=== PATIENT | female | born 1955 | race Caucasian/White ===

== ENCOUNTER 2017-01-22 22:44 | Inpatient (IN) | payer MEDICARE, MEDICAID ==
[~2017-01-22] VITALS: Ht 168 cm; Wt 77.1 kg
[~2017-01-22 22:44] MED LIST: ADVIL200 MG PO; ALBUTEROL0.09 MG/A2 INH; ASPIRIN81 M1 PO; ATARAX,VISTARIL50 MG PO; MEDROL DOSEPAK4 MG PO; MELOXICAM7.5 MG PO; NKHM PO; PRILOSEC40 M1 PO; PRILOSEC40 MG PO; PRINIVIL5 M1 PO; PROAIR HFA8.5 GM IH; SYMBICORT1 AE1 INH; XANAX0.5 MG PO; ZANTAC 150150 MG PO; ZANTAC 7575 MG PO
[2017-01-22 22:50] VITALS: BP 136/90
[2017-01-22 23:07] LABS: BASO % 0.4 % (0.0-1.0); EOS # 0.3 10*3/uL (0.0-0.4); EOS % 3.7 % (1.0-4.0); HEMATOCRIT 47.3 % (37.0-47.0); HEMOGLOBIN 15.7 g/dl (12.0-16.0); LYMPH % 44.7 % (27.0-41.0); MEAN CELL VOLUME 90.3 fl (81.0-99.0); MEAN CORPUSCULAR HGB CONC 33.2 g/dl (33.0-37.0); MEAN PLATELET VOLUME 9.7 fl (9.6-12.3); MONO # 0.7 10*3/uL (0.1-1.0); MONO % 7.8 % (3.0-9.0); NEUT # 3.9 10*3/uL (2.3-7.9); NEUT % 43.1 % (47.0-73.0); PLATELET COUNT AUTOMATED 265 10*3/uL (130-400); RED BLOOD COUNT 5.24 10*6/uL (4.10-5.10); RED CELL DISTRI WIDTH 12.9 % (0-14.5)
[2017-01-22 23:35] LABS: ALBUMIN 3.5 gm/dl (3.1-4.5); ALKALINE PHOSPHATASE 114 U/L (45-117); BUN 18 mg/dl (7-24); CHLORIDE 107 mmol/L (98-107); CREATININE 0.62 mg/dL (0.55-1.02); POTASSIUM 4.1 mmol/L (3.5-5.1); SGOT/AST 17 IU/L (3-35); SGPT/ALT 29 U/L (12-78); SODIUM 140 mmol/L (136-145)
[2017-01-22 23:38] LABS: TROPONIN I < 0.015 ng/ml (<0.045)
[2017-01-23] VITALS: BP 146/71
--- NOTE | 2017-01-23 00:03 | NUR ---
PATIENT SITTING IN BED STATES RIGHT UPPER ARM IS PAINFUL, NO SIGNS OF DISTRESS
[2017-01-23 00:05] VITALS: BP 149/84
[2017-01-23 01:00] VITALS: BP 126/70
--- NOTE | 2017-01-23 01:20 | NUR ---
ATIVAN SUCCESSFUL. PT ASLEEP.
[2017-01-23 04:50] LABS: BASO # 0.1 10*3/uL (0.0-0.1); BASO % 0.6 % (0.0-1.0); EOS # 0.3 10*3/uL (0.0-0.4); EOS % 3.7 % (1.0-4.0); HEMATOCRIT 45.8 % (37.0-47.0); HEMOGLOBIN 15.1 g/dl (12.0-16.0); LYMPH # 3.8 10*3/uL (1.3-4.4); LYMPH % 46.8 % (27.0-41.0); MEAN CELL VOLUME 91.6 fl (81.0-99.0); MEAN CORPUSCULAR HGB 30.2 pg (27.0-31.0); MEAN PLATELET VOLUME 9.7 fl (9.6-12.3); MONO # 0.7 10*3/uL (0.1-1.0); MONO % 8.8 % (3.0-9.0); NEUT # 3.2 10*3/uL (2.3-7.9); NEUT % 39.9 % (47.0-73.0); PLATELET COUNT AUTOMATED 250 10*3/uL (130-400); RED CELL DISTRI WIDTH 12.9 % (0-14.5); WHITE BLOOD COUNT 8.1 10*3/uL (4.8-10.8)
[2017-01-23 05:22] LABS: BUN 15 mg/dl (7-24); CHLORIDE 106 mmol/L (98-107); CHOLESTEROL 197 mg/dL (<200); CREATININE 0.59 mg/dL (0.55-1.02); HDL CHOLESTEROL 56 mg/dl (40-60); LDL CHOLESTEROL 115 mg/dL (9-159); PHOSPHOROUS 3.6 mg/dL (2.5-4.9); POTASSIUM 3.9 mmol/L (3.5-5.1); SODIUM 141 mmol/L (136-145); TRIGLYCERIDES 130 mg/dl (<150); VLDL CHOLESTEROL 26 mg/dL (6-40)
[2017-01-23 06:58] LABS: VITAMIN D, 25-HYDROXY 14.6 ng/mL (30-100)
[2017-01-23 08:00] VITALS: BP 101/72
[2017-01-23 12:00] VITALS: BP 119/71
[2017-01-23] MEDS ORDERED: Vitamin D PO (13:26)
[2017-01-23] MEDS ORDERED: PRINIVIL5 M1 PO (14:38)
--- NOTE | 2017-01-23 14:51 | NUR ---
Discharge instructions reviewed with patient/family. Patient receptive and verbalizes understanding. Follow-up care arranged. Written instructions given to patient/family. Pt discharged at this time in care of friend. CASTRO COBIAN
== END 2017-01-23 14:51 | disposition home or self-care (01) | DRG 313 ==
LOC: ED 22:44 → 5E 23:54 → EDHOLD 23:54 → 5E 01-23 00:01
PROVIDERS: Internal Medicine; Student in an Organized Health Care Education/Training Program; ADMIT Internal Medicine
DX: R07.9 Chest pain, unspecified (principal); D70.9 Neutropenia, unspecified; J44.9 Chronic obstructive pulmonary disease, unspecified; E55.9 Vitamin D deficiency, unspecified; K21.9 Gastro-esophageal reflux disease without esophagitis; F17.210 Nicotine dependence, cigarettes, uncomplicated; I10 Essential (primary) hypertension; Z82.3 Family history of stroke; Z79.82 Long term (current) use of aspirin; Z79.899 Other long term (current) drug therapy; Z71.6 Tobacco abuse counseling; Z82.49 Family history of ischemic heart disease and other diseases of the circulatory system

== ENCOUNTER → 2017-09-09 | Outpatient (CLI) | payer MEDICARE, MEDICAID ==
[~2017-09-09] MED LIST changes: +Vitamin D PO
[2017-09-09 14:34] LABS: BASO # 0.1 10*3/uL (0.0-0.1); BASO % 0.8 % (0.0-1.0); EOS # 0.4 10*3/uL (0.0-0.4); EOS % 3.9 % (1.0-4.0); HEMATOCRIT 48.1 % (37.0-47.0); HEMOGLOBIN 15.7 g/dl (12.0-16.0); LYMPH # 3.6 10*3/uL (1.3-4.4); LYMPH % 39.2 % (27.0-41.0); MEAN CELL VOLUME 91.6 fl (81.0-99.0); MEAN CORPUSCULAR HGB 29.9 pg (27.0-31.0); MEAN CORPUSCULAR HGB CONC 32.6 g/dl (33.0-37.0); MEAN PLATELET VOLUME 9.7 fl (9.6-12.3); MONO # 0.7 10*3/uL (0.1-1.0); MONO % 7.1 % (3.0-9.0); NEUT # 4.5 10*3/uL (2.3-7.9); NEUT % 48.7 % (47.0-73.0); PLATELET COUNT AUTOMATED 279 10*3/uL (130-400); RED BLOOD COUNT 5.25 10*6/uL (4.10-5.10); RED CELL DISTRI WIDTH 12.8 % (0-14.5); WHITE BLOOD COUNT 9.3 10*3/uL (4.8-10.8)
[2017-09-09 15:04] LABS: ALBUMIN 3.8 gm/dl (3.1-4.5); ALKALINE PHOSPHATASE 108 U/L (45-117); BUN 17 mg/dl (7-24); CHLORIDE 106 mmol/L (98-107); CHOLESTEROL 221 mg/dL (<200); CREATININE 0.68 mg/dL (0.55-1.02); HDL CHOLESTEROL 48 mg/dl (40-60); LDL CHOLESTEROL 125 mg/dL (9-159); POTASSIUM 3.9 mmol/L (3.5-5.1); SGOT/AST 13 IU/L (3-35); SGPT/ALT 23 U/L (12-78); SODIUM 140 mmol/L (136-145); TOTAL PROTEIN 7.1 gm/dL (6.4-8.2); TRIGLYCERIDES 242 mg/dl (<150); VLDL CHOLESTEROL 48 mg/dL (6-40)
[2017-09-09 15:11] LABS: THYROID STIM HORMONE (HS) 0.894 uIU/ml (0.358-4.75)
== END | disposition home or self-care (01) ==
LOC: MAMMO 08-25 14:00 → LAB 13:55 → MAMMO 14:20
PROVIDERS: Internal Medicine
DX: Z12.31 Encounter for screening mammogram for malignant neoplasm of breast (principal); I10 Essential (primary) hypertension; E66.3 Overweight

== ENCOUNTER → 2017-12-24 | Outpatient (CLI) | payer MEDICARE, MEDICAID ==
[~2017-12-24] MED LIST changes: +LATANOPROST 0.7.5 ML OP; +LIPITOR10 MG PO; +LOPRESSOR25 MG PO; +PAROXETINE10 MG PO; +TRIAMTERENE-HC1 EACH PO
--- NOTE | ~2017-12-24 | ST ---
[place], [place] EXERCISE STRESS TEST REPORT NAME: RENY GREEN [facility] #: [id number] UNIT #: [id number] ROOM: DOCTOR: JOHNNY VICENTE MD BIRTHDATE: [birth year] DOS: 12/24/2017 LEXISCAN STRESS EKG REPORT REFERRING PHYSICIAN: Dr. Ackerman. INDICATION: Central chest pain. The patient underwent standard protocol Lexiscan stress EKG. Baseline EKG is normal sinus with nonspecific ST-T wave changes. Baseline heart rate is 64 beats per minute with a blood pressure of 110/64. The patient's peak heart rate was 100 with a blood pressure of 100/58. The patient had no chest pain, no arrhythmias, no EKG changes. SUMMARY OF FINDINGS: Unremarkable Lexiscan stress EKG. Please see separate report for perfusion scan results. JOHNNY VICENTE MD CM:STRESS:EXERCISE STRESS TEST REPORT [id number] JOHNNY VICENTE MD
== END | disposition home or self-care (01) ==
LOC: CARD 00:44
DX: R07.9 Chest pain, unspecified (principal); R53.81 Other malaise

== ENCOUNTER 2018-04-28 12:33 | Inpatient (IN) | payer MEDICARE, MEDICAID ==
[~2018-04-28] VITALS: Ht 167.6 cm; Wt 87.3 kg
--- NOTE | ~2018-04-28 | EKG ---
[place], [place] ELECTROCARDIOGRAM REPORT NAME: RENY GREEN UNIT #: [id number] ROOM: 425 DOCTOR: RUTHY DRAFT REPORT BIRTHDATE: [birth year] [facility] Test Date: 2018-04-28 Test Time: 12:59:06 Pat Name: RENY GREEN Department: Room: 425 Gender: F [employer] In[employer]: : 1955 Requested By: RENITA MCDONALD Order Number: [id number] Reading MD: Gonzalez Laboy MD Measurements Intervals Sledge Rate: 62 P: 44 MS: 167 QRS: -29 QRSD: 98 T: 34 QT: 402 QTc: 409 Interpretive Statements Sinus rhythm Borderline left axis deviation Abnormal R-wave progression, late transition Electronically Signed On 04-29-2018 9:49:40 PST by Gonzalez Laboy MD CM:EKGRPT:ELECTROCARDIOGRAM REPORT [id number] RENITA HUNTER DRAFT REPORT RENITA MCDONALD DO
[2018-04-28 12:33] VITALS: BP 131/84
[2018-04-28 13:12] LABS: BASO % 0.4 % (0.0-1.0); EOS # 0.2 10*3/uL (0.0-0.4); EOS % 1.7 % (1.0-4.0); HEMATOCRIT 48.3 % (37.0-47.0); HEMOGLOBIN 15.9 g/dl (12.0-16.0); LYMPH # 3.2 10*3/uL (1.3-4.4); LYMPH % 32.7 % (27.0-41.0); MEAN CELL VOLUME 91.8 fl (81.0-99.0); MEAN CORPUSCULAR HGB 30.2 pg (27.0-31.0); MEAN CORPUSCULAR HGB CONC 32.9 g/dl (33.0-37.0); MEAN PLATELET VOLUME 9.6 fl (9.6-12.3); MONO % 10.6 % (3.0-9.0); NEUT # 5.3 10*3/uL (2.3-7.9); NEUT % 54.1 % (47.0-73.0); PLATELET COUNT AUTOMATED 355 10*3/uL (130-400); RED BLOOD COUNT 5.26 10*6/uL (4.10-5.10); RED CELL DISTRI WIDTH 12.8 % (0-14.5); WHITE BLOOD COUNT 9.8 10*3/uL (4.8-10.8)
[2018-04-28 13:34] LABS: ACT PARTIAL THROMBO TIME 23.8 SECONDS (20.8-31.5)
[2018-04-28 14:30] LABS: BILIRUBIN NEGATIVE (NEGATIVE); BLOOD 1+ (NEGATIVE); CLARITY SL CLOUDY (CLEAR); COLOR YELLOW (YELLOW); GLUCOSE NEGATIVE (NEGATIVE); KETONE NEGATIVE (NEGATIVE); LEUKO ESTERASE 1+ (NEGATIVE); NITRITE NEGATIVE (NEGATIVE); SPECIFIC GRAVITY >= 1.030 (1.005-1.030); UROBILINOGEN 0.2 E.U./dl (0.2-1.0)
[2018-04-28 14:41] LABS: BACTERIA 2+; MUCOUS 1+; WBC 16-20 wbc/hpf (0-5)
[2018-04-28 16:10] LABS: ALBUMIN 3.7 gm/dl (3.1-4.5); ALKALINE PHOSPHATASE 116 U/L (45-117); BUN 17 mg/dl (7-24); CHLORIDE 111 mmol/L (98-107); CREATININE 0.75 mg/dL (0.55-1.02); LIPASE 243 U/L (73-393); POTASSIUM 4.1 mmol/L (3.5-5.1); SGOT/AST 16 IU/L (3-35); SGPT/ALT 32 U/L (12-78); SODIUM 143 mmol/L (136-145); TOTAL PROTEIN 7.7 gm/dL (6.4-8.2); TROPONIN I < 0.015 ng/ml (<0.045)
[2018-04-28 16:56] VITALS: BP 120/67
--- NOTE | 2018-04-28 16:56 | NUR ---
ATTEMPTED TO CALL NURSE.
--- NOTE | 2018-04-28 17:20 | NUR ---
Time: 1719 A 62 year old FEMALE admitted to 4E under services of SAMMI JENKINS DO. Pt. arrived via stretcher from ER. Chief complaint: RIGHT SIDE ABD PAIN . NEGRO RASHID
[2018-04-28 17:40] VITALS: BP 139/59
[2018-04-28] MEDS ORDERED: OMEPRAZOLE D/R20 MG PO (18:29)
[2018-04-28] MEDS ORDERED: DOXYCYCLINE100 M3 PO (18:29)
[2018-04-28 20:00] VITALS: BP 131/60
--- NOTE | 2018-04-28 21:10 | NUR ---
PATIENT MEDICATED WITH NORCO FOR C/O ABDOMIAL PAIN . SEE EMAR. REINFORCED USE OF CALL LIGHT
[2018-04-29] VITALS: BP 118/56
--- NOTE | 2018-04-29 02:15 | NUR ---
PATIENT MEDICATED WITH TORADOL PER 1X ORDER FOR C/O ABBDOMINAL/SHOULDER PAIN. SEE EMAR. REINFORCED USE OF CALL LIGHT.
--- NOTE | 2018-04-29 03:01 | NUR ---
24 HR chart check completed.
--- NOTE | 2018-04-29 04:00 | NUR ---
PATIENT RESTING QUIETLY. NO FURTHER C/O VOICED.
[2018-04-29 06:40] LABS: BASO % 0.3 % (0.0-1.0); EOS # 0.2 10*3/uL (0.0-0.4); EOS % 1.6 % (1.0-4.0); HEMATOCRIT 43.2 % (37.0-47.0); LYMPH # 3.2 10*3/uL (1.3-4.4); LYMPH % 31.8 % (27.0-41.0); MEAN CELL VOLUME 94.5 fl (81.0-99.0); MEAN CORPUSCULAR HGB 29.8 pg (27.0-31.0); MEAN CORPUSCULAR HGB CONC 31.5 g/dl (33.0-37.0); MEAN PLATELET VOLUME 9.7 fl (9.6-12.3); MONO # 1.1 10*3/uL (0.1-1.0); MONO % 11.1 % (3.0-9.0); NEUT # 5.4 10*3/uL (2.3-7.9); NEUT % 54.9 % (47.0-73.0); PLATELET COUNT AUTOMATED 283 10*3/uL (130-400); RED BLOOD COUNT 4.57 10*6/uL (4.10-5.10); WHITE BLOOD COUNT 9.9 10*3/uL (4.8-10.8)
[2018-04-29 06:41] LABS: HEMOGLOBIN 13.6 g/dl (12.0-16.0)
[2018-04-29 07:05] LABS: BUN 18 mg/dl (7-24); CHLORIDE 106 mmol/L (98-107); CHOLESTEROL 163 mg/dL (<200); CREATININE 0.65 mg/dL (0.55-1.02); PHOSPHOROUS 4.2 mg/dL (2.5-4.9); SODIUM 139 mmol/L (136-145); TRIGLYCERIDES 159 mg/dl (<150); VLDL CHOLESTEROL 32 mg/dL (6-40)
[2018-04-29 07:18] LABS: HDL CHOLESTEROL 39 mg/dl (40-60); LDL CHOLESTEROL 92 mg/dL (9-159); THYROID STIM HORMONE (HS) 0.857 uIU/ml (0.358-4.75)
[2018-04-29 08:00] VITALS: BP 125/52
--- NOTE | 2018-04-29 09:00 | NUR ---
Supervisor [employer] in to talk to patient. Patient states lives at home with family. There are few steps in the home. Physician: darron hickey Pharmacy: [facility] Home health services: none Patient's level of ADLs: INDEPENDENT Patient has working utilities: all working DME: none Follow-up physician's appointment after d/c: will be made by hospitalist nurse director upon discharge Does patient want to access PORTAL?: no Discharge plan discussed with patient, patient states she lives at home, gets around fine, patient states she will be going home when able and denies any home needs. KEKE KELLEY
--- NOTE | 2018-04-29 09:13 | NUR ---
PT RESTING IN BED, NO DISTRESS NOTED. WILL MONITOR
[2018-04-29 12:00] VITALS: BP 120/59
[2018-04-29] MEDS ORDERED: AMOXICILLIN500 M2 PO (13:03)
[2018-04-29] MEDS ORDERED: VITAMIN D32000 UNI1 PO (13:03)
--- NOTE | 2018-04-29 13:29 | NUR ---
Discharge instructions reviewed with patient/family. Patient receptive and verbalizes understanding. Follow-up care arranged. Written instructions given to patient/family. NEGRO RASHID
== END 2018-04-29 13:29 | disposition home or self-care (01) | DRG 445 ==
LOC: ED 12:33 → EDHOLD 16:29 → 4E 16:29
PROVIDERS: Emergency Medicine; Internal Medicine Nephrology; ADMIT Internal Medicine
DX: K80.20 Calculus of gallbladder without cholecystitis without obstruction (principal); N39.0 Urinary tract infection, site not specified; R31.9 Hematuria, unspecified; E87.8 Other disorders of electrolyte and fluid balance, not elsewhere classified; I10 Essential (primary) hypertension; F32.9 Major depressive disorder, single episode, unspecified; H40.9 Unspecified glaucoma; K57.30 Diverticulosis of large intestine without perforation or abscess without bleeding; R73.9 Hyperglycemia, unspecified; E66.09 Other obesity due to excess calories; R00.1 Bradycardia, unspecified; R62.50 Unspecified lack of expected normal physiological development in childhood; J44.9 Chronic obstructive pulmonary disease, unspecified; K21.9 Gastro-esophageal reflux disease without esophagitis; Z98.51 Tubal ligation status; Z87.891 Personal history of nicotine dependence; Z82.3 Family history of stroke; Z83.3 Family history of diabetes mellitus; Z82.49 Family history of ischemic heart disease and other diseases of the circulatory system; Z79.899 Other long term (current) drug therapy; Z68.31 Body mass index [BMI] 31.0-31.9, adult; E83.41 Hypermagnesemia

== ENCOUNTER → 2019-08-28 | Outpatient (CLI) | payer MEDICARE, MEDICAID ==
[~2019-08-28] MED LIST changes: +AMOXICILLIN500 M2 PO; +DOXYCYCLINE100 M3 PO; +OMEPRAZOLE D/R20 MG PO; +VITAMIN D32000 UNI1 PO
== END | disposition home or self-care (01) ==
LOC: MAMMO 11:04
DX: Z12.31 Encounter for screening mammogram for malignant neoplasm of breast (principal); I10 Essential (primary) hypertension

== ENCOUNTER → 2020-05-22 | Outpatient (CLI) | payer OTHER, MEDICAID ==
[2020-05-22 14:30] LABS: BASO # 0.1 10*3/uL (0.0-0.1); BASO % 0.6 % (0.0-1.0); EOS # 0.2 10*3/uL (0.0-0.4); EOS % 2.6 % (1.0-4.0); HEMATOCRIT 51.6 % (37.0-47.0); LYMPH % 37.5 % (27.0-41.0); MEAN CELL VOLUME 90.2 fl (81.0-99.0); MEAN CORPUSCULAR HGB 28.8 pg (27.0-31.0); MEAN PLATELET VOLUME 9.6 fl (9.6-12.3); MONO # 0.5 10*3/uL (0.1-1.0); MONO % 6.7 % (3.0-9.0); NEUT # 4.2 10*3/uL (2.3-7.9); NEUT % 52.4 % (47.0-73.0); PLATELET COUNT AUTOMATED 272 10*3/uL (130-400); RED BLOOD COUNT 5.72 10*6/uL (4.10-5.10); RED CELL DISTRI WIDTH 12.8 % (0-14.5)
[2020-05-22 15:02] LABS: ALBUMIN 3.7 gm/dl (3.1-4.5); ALKALINE PHOSPHATASE 114 U/L (45-117); BUN 18 mg/dl (7-24); CHLORIDE 104 mmol/L (98-107); CHOLESTEROL 238 mg/dL (<200); CREATININE 0.66 mg/dL (0.55-1.02); HDL CHOLESTEROL 62 mg/dl (40-60); LDL CHOLESTEROL 131 mg/dL (9-159); POTASSIUM 4.1 mmol/L (3.5-5.1); SGOT/AST 13 IU/L (3-35); SGPT/ALT 22 U/L (12-78); SODIUM 140 mmol/L (136-145); TOTAL PROTEIN 7.6 gm/dL (6.4-8.2); TRIGLYCERIDES 224 mg/dl (<150); VLDL CHOLESTEROL 45 mg/dL (6-40)
[2020-05-22 15:21] LABS: VITAMIN D, 25-HYDROXY 29.8 ng/mL (30-100)
== END | disposition home or self-care (01) ==
LOC: LAB 12:26 → US 13:00
PROVIDERS: ATTEND Nurse Practitioner Primary Care
DX: I83.893 Varicose veins of bilateral lower extremities with other complications (principal); I73.9 Peripheral vascular disease, unspecified; I10 Essential (primary) hypertension; E55.9 Vitamin D deficiency, unspecified; R73.9 Hyperglycemia, unspecified; R20.0 Anesthesia of skin

== ENCOUNTER → 2020-12-19 | Outpatient (CLI) | payer OTHER, MEDICAID | END | disposition home or self-care (01) | LOC: RAD 13:20 | PROVIDERS: ATTEND Nurse Practitioner Primary Care | DX: M81.0 Age-related osteoporosis without current pathological fracture (principal); Z78.0 Asymptomatic menopausal state ==

== ENCOUNTER 2023-05-02 12:44 | Emergency (ER) | payer OTHER, MEDICAID ==
[~2023-05-02] VITALS: Ht 165.1 cm; Wt 81.6 kg
[2023-05-02] MEDS ORDERED: Valacyclovir Hydrochloride 500 MG CAP PO ONE (13:05)
[2023-05-02] MEDS ORDERED: predniSONE 20 MG TAB PO ONE (13:05)
[2023-05-02 13:25] LABS: BASO # 0.1 10*3/uL (0.0-0.1); BASO % 0.7 % (0.0-1.0); EOS % 0.4 % (1.0-4.0); HEMATOCRIT 44.5 % (37.0-47.0); LYMPH % 13.2 % (27.0-41.0); MEAN CELL VOLUME 89.7 fl (81.0-99.0); MEAN CORPUSCULAR HGB 28.8 pg (27.0-31.0); MEAN CORPUSCULAR HGB CONC 32.1 g/dl (33.0-37.0); MEAN PLATELET VOLUME 9.6 fl (9.6-12.3); MONO # 0.8 10*3/uL (0.1-1.0); MONO % 10.6 % (3.0-9.0); NEUT # 5.7 10*3/uL (2.3-7.9); PLATELET COUNT AUTOMATED 219 10*3/uL (130-400); RED BLOOD COUNT 4.96 10*6/uL (4.10-5.10); WHITE BLOOD COUNT 7.6 10*3/uL (4.8-10.8)
[2023-05-02 13:47] LABS: ALKALINE PHOSPHATASE 72 U/L (46-116); BUN 9 mg/dl (9-23); CHLORIDE 103 mmol/L (98-107); POTASSIUM 3.6 mmol/L (3.4-5.1); SGPT/ALT 13 U/L (5-49); TOTAL PROTEIN 7.1 gm/dL (6.0-8.0)
[2023-05-02 18:19] VITALS: BP 149/66
[2023-05-02] MEDS ORDERED: Valacyclovir Hydrochloride 500 MG CAP PO SCH (21:00)
== END 2023-05-02 18:35 | disposition short-term general hospital (02) ==
LOC: ED 12:44
PROVIDERS: Internal Medicine
DX: B02.21 Postherpetic geniculate ganglionitis (principal); B02.30 Zoster ocular disease, unspecified; I10 Essential (primary) hypertension; F41.9 Anxiety disorder, unspecified; F32.A Depression, unspecified; Z98.51 Tubal ligation status; Z98.890 Other specified postprocedural states; Z87.891 Personal history of nicotine dependence

== ENCOUNTER 2023-06-14 10:39 | Inpatient (IN) | payer OTHER, MEDICAID ==
[~2023-06-14] VITALS: Ht 170.2 cm; Wt 93.5 kg
[2023-06-14 10:57] VITALS: BP 129/70
[2023-06-14 11:08] LABS: BASO % 0.3 % (0.0-1.0); EOS # 0.2 10*3/uL (0.0-0.4); EOS % 2.7 % (1.0-4.0); HEMATOCRIT 44.4 % (37.0-47.0); LYMPH # 1.9 10*3/uL (1.3-4.4); LYMPH % 31.6 % (27.0-41.0); MEAN CELL VOLUME 92.9 fl (81.0-99.0); MEAN CORPUSCULAR HGB 29.3 pg (27.0-31.0); MEAN CORPUSCULAR HGB CONC 31.5 g/dl (33.0-37.0); MEAN PLATELET VOLUME 9.5 fl (9.6-12.3); MONO # 0.5 10*3/uL (0.1-1.0); MONO % 8.9 % (3.0-9.0); NEUT # 3.3 10*3/uL (2.3-7.9); NEUT % 56.2 % (47.0-73.0); PLATELET COUNT AUTOMATED 260 10*3/uL (130-400); RED BLOOD COUNT 4.78 10*6/uL (4.10-5.10); RED CELL DISTRI WIDTH 13.7 % (0-14.5)
[2023-06-14] MEDS ORDERED: TRAZODONE50 MG PO (11:13)
[2023-06-14] MEDS ORDERED: NATURE'S BLEND500 M6 PO (11:14)
[2023-06-14] MEDS ORDERED: GABAPENTIN100 M2 PO (11:15)
[2023-06-14] MEDS ORDERED: METFORMIN HYDR500 MG PO (11:17)
[2023-06-14 11:20] LABS: ACT PARTIAL THROMBO TIME 23.4 SECONDS (20.0-32.1)
[2023-06-14 11:34] LABS: ALKALINE PHOSPHATASE 63 U/L (46-116); BUN 6 mg/dl (9-23); CHLORIDE 106 mmol/L (98-107); LIPASE 42 U/L (12-53); POTASSIUM 3.8 mmol/L (3.4-5.1); SGPT/ALT 15 U/L (5-49); TOTAL PROTEIN 6.4 gm/dL (6.0-8.0)
[2023-06-14 11:43] LABS: ETHYL ALCOHOL < 3.0 mg/dl (<3)
[2023-06-14] MEDS ORDERED: SODIUM CHLORIDE 0.9% 1,000 ML IV ONE (11:45)
[2023-06-14 12:11] LABS: BILIRUBIN Negative (Negative); BLOOD Negative (Negative); CLARITY Clear (Clear); COLOR Yellow (Yellow); GLUCOSE Negative (Negative); KETONE Negative (Negative); LEUKO ESTERASE Negative (Negative); NITRITE Negative (Negative); PH 7.5 (4.5-8.0); UROBILINOGEN 0.2 E.U./dl (0.0-1.0)
[2023-06-14 12:18] LABS: URINE AMPHETAMINES Negative (1000ng/ml); URINE BARBITURATES Negative (200ng/ml); URINE BENZODIAZEPINES Negative (200ng/ml); URINE CANNABINOIDS (THC) Negative (50ng/ml); URINE COCAINE Negative (300ng/ml); URINE METHADONE Negative (300ng/ml); URINE OPIATES Negative (300ng/ml); URINE PHENCYCLIDINE Negative (25ng/ml)
[2023-06-14 13:21] VITALS: BP 130/63
[2023-06-14] MEDS ORDERED: Magnesium Hydroxide 30 ML UDC PO PRN (14:45)
[2023-06-14] MEDS ORDERED: BISACODYL 5 MG TAB PO PRN (14:45)
[2023-06-14] MEDS ORDERED: ASPIRIN 325 MG TAB PO SCH (14:50)
[2023-06-14] MEDS ORDERED: Clopidogrel Hydrogen Sulfate 75 MG TAB PO SCH (14:50)
[2023-06-14] MEDS ORDERED: SODIUM CHLORIDE 0.9% 100 ML BAG IV ONE ×2 (15:00→17:35)
[2023-06-14] MEDS ORDERED: IOHEXOL 350 MG/ML 100 ML VIAL IV ONE ×2 (15:00→17:35)
[2023-06-14 15:20] VITALS: BP 170/65
[2023-06-14 16:00] VITALS: BP 143/62
[2023-06-14] MEDS ORDERED: DEXTROSE 10 % IN WATER 250 ML IV PRN (16:35)
[2023-06-14] MEDS ORDERED: CALCIUM (OSCAL) 500MG PO SCH (18:00)
[2023-06-14 20:00] VITALS: BP 147/60
[2023-06-14] MEDS ORDERED: GABAPENTIN 100 MG CAP PO SCH (22:00)
[2023-06-14] MEDS ORDERED: Metoprolol Tartrate 25 MG TAB PO SCH (22:00)
[2023-06-14] MEDS ORDERED: LATANOPROST 0.005% 2.5 ML BOTTLE OPH SCH (22:00)
[2023-06-14] MEDS ORDERED: INSULIN LISPRO 1 UNIT/0.01 ML SQ SCH (22:00)
[2023-06-15] VITALS: BP 126/60
[2023-06-15 06:28] LABS: BASO % 0.5 % (0.0-1.0); EOS # 0.1 10*3/uL (0.0-0.4); EOS % 2.4 % (1.0-4.0); HEMATOCRIT 43.2 % (37.0-47.0); LYMPH # 2.8 10*3/uL (1.3-4.4); LYMPH % 47.6 % (27.0-41.0); MEAN CELL VOLUME 92.5 fl (81.0-99.0); MEAN CORPUSCULAR HGB 29.6 pg (27.0-31.0); MEAN CORPUSCULAR HGB CONC 31.9 g/dl (33.0-37.0); MEAN PLATELET VOLUME 9.6 fl (9.6-12.3); MONO # 0.6 10*3/uL (0.1-1.0); MONO % 9.9 % (3.0-9.0); NEUT # 2.3 10*3/uL (2.3-7.9); NEUT % 39.3 % (47.0-73.0); PLATELET COUNT AUTOMATED 268 10*3/uL (130-400); RED BLOOD COUNT 4.67 10*6/uL (4.10-5.10); RED CELL DISTRI WIDTH 13.8 % (0-14.5); WHITE BLOOD COUNT 5.9 10*3/uL (4.8-10.8)
[2023-06-15 06:46] LABS: ALKALINE PHOSPHATASE 62 U/L (46-116); BUN 6 mg/dl (9-23); CHLORIDE 105 mmol/L (98-107); CHOLESTEROL 215 mg/dL (<200); FREE T4 1.07 ng/dl (0.89-1.76); LDL CHOLESTEROL 132 mg/dL (9-159); POTASSIUM 3.8 mmol/L (3.4-5.1); SGPT/ALT 13 U/L (5-49); TOTAL PROTEIN 6.2 gm/dL (6.0-8.0); TRIGLYCERIDES 161 mg/dl (<150)
[2023-06-15] MEDS ORDERED: OMEPRAZOLE 20 MG CAP PO SCH (07:30)
[2023-06-15 08:00] VITALS: BP 114/48
[2023-06-15] MEDS ORDERED: Cholecalciferol 2,000 UNIT TABLET (50 MCG) PO SCH (10:00)
[2023-06-15] MEDS ORDERED: Enoxaparin Sodium 40 MG/0.4 ML SYR SC SCH (10:00)
[2023-06-15 12:00] VITALS: BP 117/64
[2023-06-15] MEDS ORDERED: SODIUM CHLORIDE 0.9% IV SCH (12:00)
[2023-06-15] MEDS ORDERED: ACYCLOVIR SODIUM IV SCH (12:00)
[2023-06-15] MEDS ORDERED: SODIUM BICARBONATE 4.2% 5 ML VIAL IJ ONE (12:40)
[2023-06-15] MEDS ORDERED: Lidocaine Hydrochloride 5 ML AMP IJ ONE (12:40)
[2023-06-15] MEDS ORDERED: Lidocaine Hydrochloride 5 ML AMP ONE (12:48)
[2023-06-15] MEDS ORDERED: SODIUM BICARBONATE 4.2% 5 ML VIAL ONE (12:48)
[2023-06-15] MEDS ORDERED: ASPIRIN, CHEWABLE 81 MG TAB PO SCH (13:55)
[2023-06-15] MEDS ORDERED: Clopidogrel Hydrogen Sulfate 75 MG TAB PO SCH (13:55)
[2023-06-15 16:00] VITALS: BP 113/62
[2023-06-15 20:00] VITALS: BP 127/65
[2023-06-16] VITALS: BP 117/60
[2023-06-16 06:28] LABS: ALKALINE PHOSPHATASE 62 U/L (46-116); BUN 11 mg/dl (9-23); CHLORIDE 104 mmol/L (98-107); SGPT/ALT 13 U/L (5-49); TOTAL PROTEIN 6.2 gm/dL (6.0-8.0)
[2023-06-16 08:00] VITALS: BP 100/63
[2023-06-16] MEDS ORDERED: Enoxaparin Sodium 40 MG/0.4 ML SYR SC SCH (10:00)
[2023-06-16] MEDS ORDERED: Clopidogrel Hydrogen Sulfate 75 MG TAB PO SCH (10:00)
[2023-06-16] MEDS ORDERED: ASPIRIN, CHEWABLE 81 MG TAB PO SCH (10:00)
[2023-06-16 12:00] VITALS: BP 116/53
[2023-06-16 16:00] VITALS: BP 98/48
[2023-06-16 20:00] VITALS: BP 144/86
[2023-06-17] VITALS: BP 108/51
[2023-06-17 07:06] LABS: BASO # 0.1 10*3/uL (0.0-0.1); BASO % 0.7 % (0.0-1.0); EOS # 0.2 10*3/uL (0.0-0.4); EOS % 2.6 % (1.0-4.0); HEMATOCRIT 46.2 % (37.0-47.0); LYMPH # 2.8 10*3/uL (1.3-4.4); LYMPH % 38.4 % (27.0-41.0); MEAN CORPUSCULAR HGB 29.2 pg (27.0-31.0); MEAN CORPUSCULAR HGB CONC 31.4 g/dl (33.0-37.0); MEAN PLATELET VOLUME 9.9 fl (9.6-12.3); MONO # 0.7 10*3/uL (0.1-1.0); MONO % 9.3 % (3.0-9.0); NEUT # 3.5 10*3/uL (2.3-7.9); NEUT % 48.6 % (47.0-73.0); PLATELET COUNT AUTOMATED 246 10*3/uL (130-400); RED BLOOD COUNT 4.97 10*6/uL (4.10-5.10); RED CELL DISTRI WIDTH 13.6 % (0-14.5); WHITE BLOOD COUNT 7.2 10*3/uL (4.8-10.8)
[2023-06-17 07:35] LABS: BUN 11 mg/dl (9-23); CHLORIDE 104 mmol/L (98-107); POTASSIUM 3.9 mmol/L (3.4-5.1)
[2023-06-17 08:00] VITALS: BP 116/62
[2023-06-17] MEDS ORDERED: SODIUM CHLORIDE 0.9% IV SCH (08:00)
[2023-06-17] MEDS ORDERED: ACYCLOVIR SODIUM IV SCH (08:00)
[2023-06-17 12:00] VITALS: BP 109/73
[2023-06-17] MEDS ORDERED: ACETAMINOPHEN 325 MG TAB PO PRN (14:25)
[2023-06-17] MEDS ORDERED: ACYCLOVIR SOD1000 MG IV (15:48)
[2023-06-17 16:00] VITALS: BP 126/60
[2023-06-17 20:00] VITALS: BP 128/60
[2023-06-18] VITALS: BP 138/78
[2023-06-18 06:29] LABS: BUN 13 mg/dl (9-23); CHLORIDE 106 mmol/L (98-107); POTASSIUM 3.7 mmol/L (3.4-5.1)
[2023-06-18 06:39] LABS: BASO # 0.1 10*3/uL (0.0-0.1); BASO % 0.6 % (0.0-1.0); EOS # 0.2 10*3/uL (0.0-0.4); EOS % 2.1 % (1.0-4.0); HEMATOCRIT 44.5 % (37.0-47.0); LYMPH # 2.5 10*3/uL (1.3-4.4); MEAN CELL VOLUME 94.7 fl (81.0-99.0); MEAN CORPUSCULAR HGB 29.4 pg (27.0-31.0); MEAN PLATELET VOLUME 9.9 fl (9.6-12.3); MONO # 1.1 10*3/uL (0.1-1.0); MONO % 12.5 % (3.0-9.0); NEUT # 4.8 10*3/uL (2.3-7.9); NEUT % 55.5 % (47.0-73.0); PLATELET COUNT AUTOMATED 245 10*3/uL (130-400); RED CELL DISTRI WIDTH 13.4 % (0-14.5); WHITE BLOOD COUNT 8.6 10*3/uL (4.8-10.8)
[2023-06-18 08:00] VITALS: BP 112/65
[2023-06-18 12:00] VITALS: BP 127/54
[2023-06-18] MEDS ORDERED: ASPIRIN CHILDRE81 MG PO (14:04)
[2023-06-18] MEDS ORDERED: CLOPIDOGREL75 MG PO (14:04)
[2023-06-18 16:00] VITALS: BP 133/85
== END 2023-06-18 18:22 | disposition short-term general hospital (02) | DRG 64 ==
LOC: ED 10:39 → EDHOLD 14:24 → 4E 14:24 → EDHOLD 14:25 → 4E 14:41
PROVIDERS: Family Medicine; Internal Medicine; Student in an Organized Health Care Education/Training Program; ADMIT Internal Medicine; ATTEND Internal Medicine
PROC: 02HV33Z Insertion of Infusion Device into Superior Vena Cava, Percutaneous Approach (ICD-10-PCS; principal; 2023-06-18)
PROC: B548ZZA Ultrasonography of Superior Vena Cava, Guidance (ICD-10-PCS; 2023-06-18)
DX: I63.9 Cerebral infarction, unspecified (principal); B00.4 Herpesviral encephalitis; E87.20 Acidosis, unspecified; B02.30 Zoster ocular disease, unspecified; M31.8 Other specified necrotizing vasculopathies; R29.706 NIHSS score 6; E66.9 Obesity, unspecified; J44.9 Chronic obstructive pulmonary disease, unspecified; I10 Essential (primary) hypertension; K21.9 Gastro-esophageal reflux disease without esophagitis; F32.A Depression, unspecified; R73.9 Hyperglycemia, unspecified; R62.50 Unspecified lack of expected normal physiological development in childhood; Z88.0 Allergy status to penicillin; Z98.51 Tubal ligation status; Z87.891 Personal history of nicotine dependence; Z82.3 Family history of stroke; Z68.32 Body mass index [BMI] 32.0-32.9, adult

== ENCOUNTER → 2023-09-14 | Outpatient (CLI) | payer OTHER, MEDICAID ==
[~2023-09-14] MED LIST changes: +ACYCLOVIR SOD1000 MG IV; +ASPIRIN CHILDRE81 MG PO; +CLOPIDOGREL75 MG PO; +GABAPENTIN100 M2 PO; +METFORMIN HYDR500 MG PO; +NATURE'S BLEND500 M6 PO; +TRAZODONE50 MG PO
[2023-09-14 11:52] LABS: BASO # 0.1 10*3/uL (0.0-0.1); BASO % 1.1 % (0.0-1.0); EOS # 0.3 10*3/uL (0.0-0.4); EOS % 4.2 % (1.0-4.0); HEMATOCRIT 43.5 % (37.0-47.0); LYMPH # 2.1 10*3/uL (1.3-4.4); MEAN CELL VOLUME 91.8 fl (81.0-99.0); MEAN CORPUSCULAR HGB CONC 32.6 g/dl (33.0-37.0); MEAN PLATELET VOLUME 9.7 fl (9.6-12.3); MONO # 0.5 10*3/uL (0.1-1.0); MONO % 8.2 % (3.0-9.0); NEUT # 3.3 10*3/uL (2.3-7.9); NEUT % 52.3 % (47.0-73.0); PLATELET COUNT AUTOMATED 301 10*3/uL (130-400); RED BLOOD COUNT 4.74 10*6/uL (4.10-5.10); RED CELL DISTRI WIDTH 12.8 % (0-14.5); WHITE BLOOD COUNT 6.2 10*3/uL (4.8-10.8)
[2023-09-14 12:18] LABS: ALKALINE PHOSPHATASE 64 U/L (46-116); BUN 14 mg/dl (9-23); CHLORIDE 106 mmol/L (98-107); CHOLESTEROL 205 mg/dL (<200); LDL CHOLESTEROL 111 mg/dL (9-159); POTASSIUM 3.7 mmol/L (3.4-5.1); SGPT/ALT 12 U/L (5-49); TRIGLYCERIDES 168 mg/dl (<150)
== END | disposition home or self-care (01) ==
LOC: LAB 11:22
PROVIDERS: ATTEND Internal Medicine
DX: I10 Essential (primary) hypertension (principal); E78.5 Hyperlipidemia, unspecified; I63.9 Cerebral infarction, unspecified; E55.9 Vitamin D deficiency, unspecified

== ENCOUNTER 2023-09-30 10:59 | Inpatient (IN) | payer OTHER, MEDICAID ==
[~2023-09-30] VITALS: Ht 167.6 cm; Wt 92.5 kg
[2023-09-30 11:20] VITALS: BP 154/88
[2023-09-30] MEDS ORDERED: Acetaminophen/Oxycodone 5 MG/325 MG TABLET PO ONE (11:30)
[2023-09-30 11:49] LABS: BASO # 0.1 10*3/uL (0.0-0.1); BASO % 0.7 % (0.0-1.0); EOS # 0.3 10*3/uL (0.0-0.4); HEMATOCRIT 46.8 % (37.0-47.0); LYMPH # 2.4 10*3/uL (1.3-4.4); LYMPH % 34.8 % (27.0-41.0); MEAN CELL VOLUME 92.3 fl (81.0-99.0); MEAN CORPUSCULAR HGB 29.4 pg (27.0-31.0); MEAN CORPUSCULAR HGB CONC 31.8 g/dl (33.0-37.0); MEAN PLATELET VOLUME 9.6 fl (9.6-12.3); MONO # 0.5 10*3/uL (0.1-1.0); MONO % 7.8 % (3.0-9.0); NEUT # 3.6 10*3/uL (2.3-7.9); NEUT % 52.6 % (47.0-73.0); PLATELET COUNT AUTOMATED 284 10*3/uL (130-400); RED BLOOD COUNT 5.07 10*6/uL (4.10-5.10); RED CELL DISTRI WIDTH 12.7 % (0-14.5); WHITE BLOOD COUNT 6.8 10*3/uL (4.8-10.8)
[2023-09-30 12:02] LABS: ACT PARTIAL THROMBO TIME 26.6 SECONDS (20.0-32.1)
[2023-09-30 12:15] LABS: ALKALINE PHOSPHATASE 72 U/L (46-116); BUN 8 mg/dl (9-23); CHLORIDE 108 mmol/L (98-107); POTASSIUM 3.9 mmol/L (3.4-5.1); SGPT/ALT 13 U/L (5-49); TOTAL PROTEIN 7.6 gm/dL (6.0-8.0)
[2023-09-30] MEDS ORDERED: ACETAMINOPHEN 325 MG TAB PO PRN (15:30)
[2023-09-30] MEDS ORDERED: Ondansetron Hydrochloride 4 MG/2 ML VIAL IV PRN (15:30)
[2023-09-30] MEDS ORDERED: DEXTROSE 10 % IN WATER 250 ML IV PRN (15:30)
[2023-09-30] MEDS ORDERED: methylPREDNISolone sod succ 125 MG VIAL IV ONE (15:40)
[2023-09-30] MEDS ORDERED: Acetaminophen/Oxycodone 5 MG/325 MG TABLET PO PRN (15:40)
[2023-09-30] MEDS ORDERED: INSULIN LISPRO 1 UNIT/0.01 ML SQ SCH (16:30)
[2023-09-30 17:57] VITALS: BP 147/78
[2023-09-30] MEDS ORDERED: GABAPENTIN 100 MG CAP PO SCH ×2 (18:00→22:00)
[2023-09-30] MEDS ORDERED: CALCIUM (OSCAL) 500MG PO SCH (18:00)
[2023-09-30 20:00] VITALS: BP 152/78
[2023-09-30] MEDS ORDERED: Cyclobenzaprine Hydrochlorid 10 MG TAB PO SCH (22:00)
[2023-09-30] MEDS ORDERED: Metoprolol Tartrate 25 MG TAB PO SCH (22:00)
[2023-09-30] MEDS ORDERED: LATANOPROST 0.005% 2.5 ML BOTTLE OPH SCH (22:00)
[2023-10-01] VITALS: BP 106/55
[2023-10-01 06:31] LABS: BASO % 0.1 % (0.0-1.0); HEMATOCRIT 39.1 % (37.0-47.0); LYMPH # 1.8 10*3/uL (1.3-4.4); LYMPH % 16.2 % (27.0-41.0); MEAN CELL VOLUME 90.1 fl (81.0-99.0); MEAN CORPUSCULAR HGB CONC 32.2 g/dl (33.0-37.0); MEAN PLATELET VOLUME 9.9 fl (9.6-12.3); MONO # 0.5 10*3/uL (0.1-1.0); MONO % 4.5 % (3.0-9.0); NEUT # 8.7 10*3/uL (2.3-7.9); NEUT % 78.7 % (47.0-73.0); PLATELET COUNT AUTOMATED 264 10*3/uL (130-400); RED BLOOD COUNT 4.34 10*6/uL (4.10-5.10); RED CELL DISTRI WIDTH 12.7 % (0-14.5); WHITE BLOOD COUNT 11.1 10*3/uL (4.8-10.8)
[2023-10-01 07:15] LABS: ALKALINE PHOSPHATASE 59 U/L (46-116); BUN 13 mg/dl (9-23); CHLORIDE 107 mmol/L (98-107); POTASSIUM 3.9 mmol/L (3.4-5.1); SGPT/ALT 10 U/L (5-49); TOTAL PROTEIN 6.2 gm/dL (6.0-8.0)
[2023-10-01 08:00] VITALS: BP 132/74
[2023-10-01] MEDS ORDERED: Paroxetine Hydrochloride 10 MG TAB PO SCH (10:00)
[2023-10-01] MEDS ORDERED: OMEPRAZOLE 20 MG CAP PO SCH (10:00)
[2023-10-01] MEDS ORDERED: Enoxaparin Sodium 40 MG/0.4 ML SYR SC SCH (10:00)
[2023-10-01] MEDS ORDERED: ASPIRIN, CHEWABLE 81 MG TAB PO SCH (10:00)
[2023-10-01] MEDS ORDERED: Clopidogrel Hydrogen Sulfate 75 MG TAB PO SCH (10:00)
[2023-10-01] MEDS ORDERED: methylPREDNISolone sod succ 40 MG VIAL IV SCH (11:20)
[2023-10-01 12:00] VITALS: BP 123/83
[2023-10-01 16:00] VITALS: BP 122/65
[2023-10-01 20:00] VITALS: BP 122/63
[2023-10-01] MEDS ORDERED: hydrOXYzine pamoate 25 MG CAP PO ONE (22:35)
[2023-10-02] VITALS: BP 115/60
[2023-10-02 08:00] VITALS: BP 118/73
[2023-10-02 12:00] VITALS: BP 122/62
[2023-10-02] MEDS ORDERED: GABAPENTIN 100 MG CAP PO SCH (14:00)
[2023-10-02 15:35] LABS: BILIRUBIN Negative (Negative); BLOOD Negative (Negative); CLARITY Clear (Clear); COLOR Yellow (Yellow); GLUCOSE Negative (Negative); KETONE Negative (Negative); LEUKO ESTERASE 1+ (Negative); NITRITE Negative (Negative); PH 6.5 (4.5-8.0); UROBILINOGEN 0.2 E.U./dl (0.0-1.0)
[2023-10-02 16:00] VITALS: BP 112/63
[2023-10-02 16:04] LABS: EPITHELIAL CELLS 0-2
[2023-10-02 20:00] VITALS: BP 126/72
[2023-10-03] VITALS: BP 99/50
[2023-10-03 08:00] VITALS: BP 146/65
[2023-10-03] MEDS ORDERED: Paroxetine Hydrochloride 10 MG TAB PO SCH (10:00)
[2023-10-03 12:00] VITALS: BP 125/70
[2023-10-03 16:00] VITALS: BP 134/60
[2023-10-03 20:08] VITALS: BP 130/63
[2023-10-03] MEDS ORDERED: GABAPENTIN 300 MG CAP PO SCH (22:00)
[2023-10-04 00:07] VITALS: BP 109/55
[2023-10-04 06:05] LABS: BASO % 0.2 % (0.0-1.0); HEMATOCRIT 38.3 % (37.0-47.0); LYMPH # 2.7 10*3/uL (1.3-4.4); LYMPH % 24.2 % (27.0-41.0); MEAN CELL VOLUME 91.6 fl (81.0-99.0); MEAN CORPUSCULAR HGB 29.4 pg (27.0-31.0); MEAN CORPUSCULAR HGB CONC 32.1 g/dl (33.0-37.0); MEAN PLATELET VOLUME 10.1 fl (9.6-12.3); MONO # 0.7 10*3/uL (0.1-1.0); MONO % 6.3 % (3.0-9.0); NEUT # 7.8 10*3/uL (2.3-7.9); NEUT % 68.7 % (47.0-73.0); PLATELET COUNT AUTOMATED 270 10*3/uL (130-400); RED BLOOD COUNT 4.18 10*6/uL (4.10-5.10); RED CELL DISTRI WIDTH 12.6 % (0-14.5); WHITE BLOOD COUNT 11.3 10*3/uL (4.8-10.8)
[2023-10-04 08:00] VITALS: BP 135/68
[2023-10-04] MEDS ORDERED: CYCLOBENZAPRINE10 MG PO (10:33)
[2023-10-04] MEDS ORDERED: PREDNISONE50 MG PO (10:33)
[2023-10-04] MEDS ORDERED: NEURONTIN300 MG PO (10:34)
[2023-10-04 11:53] VITALS: BP 109/57
== END 2023-10-04 12:30 | disposition home health service (06) | DRG 552 ==
LOC: ED 10:59 → 4E 13:34 → EDHOLD 13:34 → 4E 15:47
PROVIDERS: Internal Medicine; Registered Nurse; ADMIT Internal Medicine; ATTEND Internal Medicine
DX: M54.31 Sciatica, right side (principal); E44.0 Moderate protein-calorie malnutrition; E55.9 Vitamin D deficiency, unspecified; K21.9 Gastro-esophageal reflux disease without esophagitis; J44.9 Chronic obstructive pulmonary disease, unspecified; F32.9 Major depressive disorder, single episode, unspecified; M48.061 Spinal stenosis, lumbar region without neurogenic claudication; M51.36 Other intervertebral disc degeneration, lumbar region; E11.65 Type 2 diabetes mellitus with hyperglycemia; Z88.0 Allergy status to penicillin; Z87.891 Personal history of nicotine dependence; Z98.51 Tubal ligation status; Z82.3 Family history of stroke; Z86.73 Personal history of transient ischemic attack (TIA), and cerebral infarction without residual deficits; Z68.32 Body mass index [BMI] 32.0-32.9, adult

== ENCOUNTER 2024-02-01 13:06 | Emergency (ER) | payer OTHER, MEDICAID ==
[~2024-02-01] VITALS: Ht 167.6 cm; Wt 86.2 kg
[~2024-02-01 13:06] MED LIST changes: +CYCLOBENZAPRINE10 MG PO; +NEURONTIN300 MG PO; +PREDNISONE50 MG PO
[2024-02-01 13:19] VITALS: BP 131/78
[2024-02-01] MEDS ORDERED: Acetaminophen/Oxycodone 5 MG/325 MG TABLET PO ONE (13:30)
[2024-02-01 15:07] LABS: BASO % 0.5 % (0.0-1.0); EOS # 0.1 10*3/uL (0.0-0.4); EOS % 1.1 % (1.0-4.0); HEMATOCRIT 39.5 % (37.0-47.0); MEAN CELL VOLUME 85.9 fl (81.0-99.0); MEAN CORPUSCULAR HGB 26.5 pg (27.0-31.0); MEAN CORPUSCULAR HGB CONC 30.9 g/dl (33.0-37.0); MEAN PLATELET VOLUME 9.9 fl (9.6-12.3); MONO # 0.6 10*3/uL (0.1-1.0); NEUT # 4.2 10*3/uL (2.3-7.9); NEUT % 66.7 % (47.0-73.0); PLATELET COUNT AUTOMATED 244 10*3/uL (130-400); RED CELL DISTRI WIDTH 14.6 % (0-14.5); WHITE BLOOD COUNT 6.2 10*3/uL (4.8-10.8)
[2024-02-01 15:18] LABS: ACT PARTIAL THROMBO TIME 26.4 SECONDS (20.0-32.1)
[2024-02-01 15:24] LABS: BUN 10 mg/dl (9-23); CHLORIDE 106 mmol/L (98-107); POTASSIUM 3.5 mmol/L (3.4-5.1)
[2024-02-01] MEDS ORDERED: HYDROCODONE-AC1 EAC1 PO (16:08)
== END 2024-02-01 17:39 | disposition home or self-care (01) ==
LOC: ED 13:06
PROVIDERS: Physician Assistant Medical
DX: S46.911A Strain of unspecified muscle, fascia and tendon at shoulder and upper arm level, right arm, initial encounter (principal); M71.21 Synovial cyst of popliteal space [Baker], right knee; R60.0 Localized edema; Z86.73 Personal history of transient ischemic attack (TIA), and cerebral infarction without residual deficits; Z88.0 Allergy status to penicillin; Z79.899 Other long term (current) drug therapy; Z98.2 Presence of cerebrospinal fluid drainage device; Z79.84 Long term (current) use of oral hypoglycemic drugs; Z87.891 Personal history of nicotine dependence; X50.9XXA Other and unspecified overexertion or strenuous movements or postures, initial encounter; Y93.89 Activity, other specified; Y92.098 Other place in other non-institutional residence as the place of occurrence of the external cause; Y99.8 Other external cause status